=== PATIENT | female | born 1955 | race Caucasian/White ===

== ENCOUNTER 2020-05-06 05:13 | Observation (INO) ==
--- NOTE | 2020-04-26 15:52 | PAT Medication Instructions ---
Medication Instructions Date of Service April 26, 2020 Home Medications alendronate 70 mg tablet 70 mg PO WK antiarthritic combination no.2 900 mg tablet 900 mg PO HS atorvastatin 40 mg tablet 40 mg PO HS calcium carb,cit ER 600 mg calcium-vit D3 500 unit tablet,ext.release 1 tab PO BID docosahexaenoic acid 200 mg capsule 200 mg PO BID levothyroxine 112 mcg tablet 112 mcg PO QAM magnesium oxide 400 mg PO BID montelukast 10 mg tablet 10 mg PO QPM paroxetine HCl 30 mg tablet 30 mg PO HS vitamin B complex 1 tab PO HS warfarin 6 mg tablet 6.5 mg PO 4XWK ascorbic acid (vitamin C) [Vitamin C] 500 mg PO HS cholecalciferol (vitamin D3) [Vitamin D3] 125 mcg PO HS metoprolol succinate 50 mg PO HS warfarin 6 mg PO 3XWK acetaminophen [Tylenol Extra Strength] 1,000 mg PO Q6H PRN allopurinol 100 mg PO HS fluticasone propionate [Flonase] 1 spray INTRANASAL HS Continue as directed alendronate 70 mg tablet 70 mg PO WK (just do not take morning of surgery) ASK your surgeon for instructions antiarthritic combination no.2 900 mg tablet 900 mg PO HS ASK your prescriber and surgeon warfarin STOP taking 2 weeks before surgery docosahexaenoic acid 200 mg capsule 200 mg PO BID DO NOT take the morning of surgery calcium carb,cit ER 600 mg calcium-vit D3 500 unit tablet,ext.release 1 tab PO BID magnesium oxide 400 mg PO BID Take morning of surgery With a small sip of water, OTHERWISE NOTHING TO EAT OR DRINK AFTER MIDNIGHT: levothyroxine 112 mcg tablet 112 mcg PO QAM acetaminophen [Tylenol Extra Strength] 1,000 mg PO Q6H PRN (okay to take up to 4 hours prior to surgery if needed) Take evening before surgery atorvastatin 40 mg tablet 40 mg PO HS calcium carb,cit ER 600 mg calcium-vit D3 500 unit tablet,ext.release 1 tab PO BID magnesium oxide 400 mg PO BID montelukast 10 mg tablet 10 mg PO QPM paroxetine HCl 30 mg tablet 30 mg PO HS vitamin B complex 1 tab PO HS ascorbic acid (vitamin C) [Vitamin C] 500 mg PO HS cholecalciferol (vitamin D3) [Vitamin D3] 125 mcg PO HS metoprolol succinate 50 mg PO HS acetaminophen [Tylenol Extra Strength] 1,000 mg PO Q6H PRN (if needed) allopurinol 100 mg PO HS fluticasone propionate [Flonase] 1 spray INTRANASAL HS Other Notes If you have any questions please call us at [phone] or [phone] or [phone] or [phone]
--- NOTE | 2020-04-30 12:18 | Anesthesiology Consultation ---
Date of Service April 30, 2020 Assessment & Plan (1) Encounter for pre-operative examination: Chart Review Chart Review: Acceptable Risk for Surgery (pending preop Covid testing results ) and Patient seen in Pre Admission Testing Check INR stat AM of surgery Per PAT appt on 04/30/20, patient resides in [facility]. Travels to [facility] for medical appts. Wears mask, uses good hand hygiene and socially distan efra. Works at [employer]- no history of positive cases. Gets tested monthly- has tested negative. No known Covid positive contacts or Covid related symptoms. Pt had Covid testing done through work today ([facility] in [place], [place]) 04/30/20= results pending. Surgeon's office aware. Patient will call with verbal when results are in and will get hard copy for DOS. Educated on importance of self quarantining, social distancing and wearing mask in public both for the patient and household contacts. Seen by cardio on 02/07/20= "She is an acceptable cardiac risk for any necessary procedure such as a knee replacement." DVT and warfarin management deferred to PCP. A fib/SSS/PM- continue current meds including metoprolol. PVCs- will repeat monitor to assess PVC burden s/p PM and on beta rose. SOB- likely multifactorial- not worsening. No further testing at this time. Teaching & Discussion Pre-Anesthesia Teaching/Discussion Notes: Instructed NPO after midnight before surgery,except medications with 15 cc of water. Medication instructions provided according to the PAT guidelines. History Surgery Operation Date: 05/06/20 13:15 Proposed Procedures p Right Total Knee Arthroplasty - Slade Crawford DO Height/Weight Height: 5 ft 7 in Weight: 118.4 kg Allergies Allergy/AdvReac Type Severity Reaction Status Date / Time No Known Allergies Allergy Verified 04/19/20 08:03 Medications Home Medications Medication Instructions Recorded Confirmed Last Taken alendronate 70 mg tablet 70 mg PO WK 07/17/19 04/19/20 Unknown antiarthritic combination no.2 900 900 mg PO HS 07/17/19 04/19/20 Unknown mg tablet atorvastatin 40 mg tablet 40 mg PO HS 07/17/19 04/19/20 Unknown calcium carb,cit ER 600 mg 1 tab PO BID 07/17/19 04/19/20 Unknown calcium-vit D3 500 unit tablet,ext.release docosahexaenoic acid 200 mg capsule 200 mg PO BID 07/17/19 04/19/20 Unknown levothyroxine 112 mcg tablet 112 mcg PO QAM 07/17/19 04/19/20 Unknown magnesium oxide 400 mg PO BID 07/17/19 04/19/20 Unknown montelukast 10 mg tablet 10 mg PO QPM 07/17/19 04/19/20 Unknown paroxetine HCl 30 mg tablet 30 mg PO HS 07/17/19 04/19/20 Unknown vitamin B complex 1 tab PO HS 07/17/19 04/19/20 Unknown warfarin 6 mg tablet 6.5 mg PO 4XWK 07/17/19 04/19/20 Unknown ascorbic acid (vitamin C) [Vitamin 500 mg PO HS 10/24/19 04/19/20 Unknown C] cholecalciferol (vitamin D3) 125 mcg PO HS 10/24/19 04/19/20 Unknown [Vitamin D3] metoprolol succinate 50 mg PO HS 10/24/19 04/19/20 Unknown warfarin 6 mg PO 3XWK 10/24/19 04/19/20 Unknown acetaminophen [Tylenol Extra 1,000 mg PO Q6H PRN 04/19/20 04/19/20 Unknown Strength] allopurinol 100 mg PO HS 04/19/20 04/19/20 Unknown fluticasone propionate [Flonase] 1 spray INTRANASAL HS 04/19/20 04/19/20 Unknown Past Medical History Medical History (Updated 05/01/20 @ 08:09 by Kenya Mir, JAVANC) Afib Stable and controlled Anti-phospholipid antibody syndrome DX'D 1995-F/U PCP- did have DVT after pacer placement due to not being bridged with Lovenox Anxiety Stable and controlled Bigeminy Follows with cardio- stable DVT (deep venous thrombosis) 1993 (LLE), recurrent DVT after AC discontinued in 1995 Fatty liver Mild elevation in LFTs- otherwise stable and controlled Gout On Allopurinol daily- stable and controlled Hemochromatosis Stable- taken off iron supplement - no current issues - follows with PCP Hyperlipidemia Hypothyroid Migraine Myasthenia gravis s/p thymectomy, "in remission" SINCE 2004 Pulmonary embolus 1993 PVC's (premature ventricular contractions) Sleep apnea CPAP SOB (shortness of breath) on exertion Chronic and stable Tachy-feliciano syndrome S/p pacer placement - November 2019 Exercise / Class Metabolic Activity III < 4 Walking/Shop/Light housework (one flight of stairs - mild SOB, no chest pain ) Past Family History Family History Mother , HEART FAILURE Hypertension Osteoporosis Dyslipidemia Cancer BREAST CA Father Cancer BLADDER CA SKIN CA Coronary heart disease Past Surgical History Surgical History History of appendectomy History of carpal tunnel release of both wrists History of colonoscopy History of right breast biopsy History of surgery on left wrist ORIF History of thymectomy History of tonsillectomy Pacemaker PLACEMENT-11/2019-F/U DR GAGE العلي Past Anesthesia History No Hx of Anesthesia Complications and No Family Hx of Anesthesia Complications History of PONV No Hx of PONV and No Hx of Motion Sickness Social History Smoking Status: Never smoker Do You Dip or Chew Tobacco: No Hx Alcohol Use: Yes Alcohol type: other alcohol intake frequency: a few times a month Hx Substance Use: No substance use type: does not use Review of Systems Patient denies chest pain, shortness of breath, dyspnea on exertion, reflux, cough, wheezing, palpitations. No hx of seizures, stroke, NH. No hx of blood transfusions Physical Exam Vital Signs VITALS BP 117/78 P 61 TEMP 97.3 SP02 97&% RESP 16 Constitutional no acute distress ENMT Mouth: no TMJ clicking Thyromental Distance: > or= 3.5 Finger Breadths (3.5) Mallampati Class: I Missing molars Crowns to molars Cap to front right side tooth Neck + short neck, + thick neck and + limited neck extension (mild ) Respiratory normal respiratory effort; no respiratory distress Auscultation: lungs clear to auscultation bilaterally; no wheezes Cardiovascular Rate/Rhythm: regular rate and regular rhythm (occ missed beat ) Heart Sounds: no murmur Vessels: no carotid bruit Musculoskeletal Spine: no pain with cervical ROM Neurologic moves all extremities Psychiatric Orientation: alert Testing Laboratory Results 04/30/20 12:40 04/30/20 12:40 PT 18.1 Seconds (9.0-12.0) H 04/30/20 12:40 INR 1.8 (0.9-1.1) H 04/30/20 12:40 APTT 49.3 Seconds (21.0-31.0) H* 04/30/20 12:40 Blood Type AB Positive 04/30/20 12:40 Antibody Screen NEGATIVE 04/30/20 12:40 Electrocardiogram Date: 02/07/20 Atrial pacing with occ PVCs noted at 64 bpm. Chest X-Ray Date: 04/30/20 Findings: + NAD Echocardiogram Date: 09/25/19 EF: 50% LV Function: dysfunctional (Mildly decreased ) Some beat to beat variability in LV function due to a fib with RVR. Apical segment, apical inferior segment, and apex are mildly hypokinetic. All remaining scored segments are normal. LA mildly dilated. Mild MI Stress Test Date: 09/18/19 Type: nuclear No evidence of myocardial ischemia/infarction. Wall motion is normal. Transient ischemic dilatation is absent. EF 50%. Other Testing Pacer check 02/14/20= [employer]. Implanted 11/29/19. Mode DDDR. RA pacing 30%. RV pacing 9%. Battery life remaining 13 years. AT/AF burden 21%. 467 HVR episodes. All events appear to be a fib RVR, longest >48 hours, HR 126-190 bpm. No changes made
--- NOTE | 2020-04-30 13:02 | XRay Report ---
XR chest Pre-admission PA/Lat HISTORY: 64 years-old Female pat preoperative exam. No acute chest complaints COMPARISON: None TECHNIQUE: PA and lateral views of the chest FINDINGS: Cardiomediastinal and hilar silhouettes are within normal limits. Surgical clips project over the mid line upper chest. Left subclavian pacer. No pneumothorax, pleural effusion, airspace consolidation or overt pulmonary edema. Degenerative changes of the shoulders and spine. Convex right curvature of th e midthoracic spine. IMPRESSION: No acute process. ACT 112: Negative or not required by law. The above report was generated using voice recognition software. It may contain grammatical, syntax o r spelling errors. Electronically signed by: Flex Emanuel M.D. 04/30/2020 1:01 PM
[2020-04-30 13:22] LABS: Basophils # (auto) 0.05 K/uL (0-0.2); Basophils % (auto) 0.7 %; Eosinophils # (auto) 0.26 K/uL (0-0.5); Eosinophils % (auto) 3.9 %; Hematocrit (blood only) 43.9 % (37-47); Hemoglobin 14.5 g/dL (12.0-16.0); Immature Granulocytes # (auto) 0.01 K/uL (0.00-0.02); Immature Granulocytes % (auto) 0.1 %; Lymphocytes # (auto) 2.07 K/uL (1.2-3.4); Lymphocytes % (auto) 30.9 %; Mean Corpuscular Hemoglobin 29.3 pg (25-34); Mean Corpuscular Volume 88.7 fL (80-100); Mean Platelet Volume 10.9 fL (7.4-10.4); Monocytes # (auto) 0.77 K/uL (0.11-0.59); Monocytes % (auto) 11.5 %; Neutrophils # (auto) 3.54 K/uL (1.4-6.5); Neutrophils % (auto) 52.9 %; Platelet Count 231 K/uL (130-400); RDW Coefficient of Variation 15.3 % (11.5-14.5); RDW Standard Deviation 49.8 fL (36.4-46.3); Red Blood Count 4.95 M/uL (4.2-5.4)
[2020-04-30 13:31] LABS: BUN Creatinine Ratio 19.4 (10-20); Calcium 10.1 mg/dl (8.5-10.1); Creatinine Clr Calc Pharmacy 92.3 ml/min; Est GFR (African American) 87.6; Est GFR (Non-African American) 75.6; Potassium 4.5 mmol/L (3.5-5.1)
[2020-04-30 13:44] LABS: INR 1.8 (0.9-1.1); Partial Thromboplastin Ratio 1.8; Prothrombin Time 18.1 Seconds (9.0-12.0)
[2020-04-30 13:47] LABS: Partial Thromboplastin Time 49.3 Seconds (21.0-31.0)
--- NOTE | 2020-05-02 12:11 | History & Physical Report ---
Date of Service May 02, 2020 Assessment & Plan (1) Osteoarthritis of right knee: We will proceed with a right total knee arthroplasty. Postoperatively she will be started back on Coumadin for DVT prophylaxis and bridged with Lovenox. We will keep her overnight in the hospital for postoperative medical management. She plans to do outpatient physical therapy in [place] upon discharge. Present on Admission?: Yes History of Present Illness Chief Complaint: Primary osteoarthritis of the right knee Primary Care Provider: NO PCP Alejandro is a pleasant 64-year-old female who is been dealing with chronic increasing right knee pain. X-rays and clinical examination have been diagnostic for advanced osteoarthritis of the right knee. She does have an extensive clotting history. She has an antiphospholipid antibody. In 1994 she had a DVT and a pulmonary embolism. She had been on Coumadin since. She then had a pacemaker placed in November 2019 and there was no Lovenox bridge. She developed a DVT from that. She has since been on the Coumadin. A recent ultrasound was negative for DVT. She has elected to proceed with a right total knee arthroplasty. Allergies Allergy/AdvReac Type Severity Reaction Status Date / Time No Known Allergies Allergy Verified 04/19/20 08:03 Home Medications Home Medications Medication Instructions Recorded Confirmed Type alendronate 70 mg tablet 70 mg PO WK 07/17/19 04/19/20 History antiarthritic combination no.2 900 900 mg PO HS 07/17/19 04/19/20 History mg tablet atorvastatin 40 mg tablet 40 mg PO HS 07/17/19 04/19/20 History calcium carb,cit ER 600 mg 1 tab PO BID 07/17/19 04/19/20 History calcium-vit D3 500 unit tablet,ext.release docosahexaenoic acid 200 mg capsule 200 mg PO BID 07/17/19 04/19/20 History levothyroxine 112 mcg tablet 112 mcg PO QAM 07/17/19 04/19/20 History magnesium oxide 400 mg PO BID 07/17/19 04/19/20 History montelukast 10 mg tablet 10 mg PO QPM 07/17/19 04/19/20 History paroxetine HCl 30 mg tablet 30 mg PO HS 07/17/19 04/19/20 History vitamin B complex 1 tab PO HS 07/17/19 04/19/20 History warfarin 6 mg tablet 6.5 mg PO 4XWK 07/17/19 04/19/20 History ascorbic acid (vitamin C) [Vitamin 500 mg PO HS 10/24/19 04/19/20 History C] cholecalciferol (vitamin D3) 125 mcg PO HS 10/24/19 04/19/20 History [Vitamin D3] metoprolol succinate 50 mg PO HS 10/24/19 04/19/20 History warfarin 6 mg PO 3XWK 10/24/19 04/19/20 History acetaminophen [Tylenol Extra 1,000 mg PO Q6H PRN 04/19/20 04/19/20 History Strength] allopurinol 100 mg PO HS 04/19/20 04/19/20 History fluticasone propionate [Flonase] 1 spray INTRANASAL HS 04/19/20 04/19/20 History Past Med/Surg History Medical History Afib Stable and controlled Anti-phospholipid antibody syndrome DX'D 1995-F/U PCP- did have DVT after pacer placement due to not being bridged with Lovenox Anxiety Stable and controlled Bigeminy Follows with cardio- stable DVT (deep venous thrombosis) 1993 (LLE), recurrent 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 AC discontinued in 1995 Fatty liver Mild elevation in LFTs- otherwise stable and controlled Gout On Allopurinol daily- stable and controlled Hemochromatosis Stable- taken off iron supplement - no current issues - follows with PCP Hyperlipidemia Hypothyroid Migraine Myasthenia gravis s/p thymectomy, "in remission" SINCE 2004 Pulmonary embolus 1993 PVC's (premature ventricular contractions) Sleep apnea CPAP SOB (shortness of breath) on exertion Chronic and stable Tachy-feliciano syndrome S/p pacer placement - November 2019 Surgical History History of appendectomy History of carpal tunnel release of both wrists History of colonoscopy History of right breast biopsy History of surgery on left wrist ORIF History of thymectomy History of tonsillectomy Pacemaker PLACEMENT-11/2019-F/U DR GAGE العلي Family History Mother , HEART FAILURE Hypertension Osteoporosis Dyslipidemia Cancer BREAST CA Father Cancer BLADDER CA SKIN CA Coronary heart disease Social History Smoking Status: Never smoker Second Hand Exposure: Yes (PARENTS SMOKED); Hx Alcohol Use: Yes Alcohol type: other Hx Substance Use: No Preferred Language: Israeli Communication Ability: Effective Visual Impairment: No Limitations Hearing Ability: Normal Digital Computer Operator Required: No Beliefs That Will Affect Care: None marital status: Unknown Current Living Situation: Spouse current occupational status: employed current occupation: NURSING Feels Safe at Home: Yes Review of Systems Review of Systems: All systems reviewed & are unremarkable except as noted in HPI & below Physical Exam Constitutional: WD/WN, vitals as above Eyes: PERRL, conjunctivae normal, anicteric sclerae ENMT: external ear and nose normal, oropharynx normal Neck: trachea midline, no thyromegaly Respiratory: normal respiratory effort Cardiovascular: RRR, no murmur, no edema Gastrointestinal (Abdomen): normal bowel sounds, soft, nontender, no hepatosplenomegaly Musculoskeletal: On physical examination of the right knee there is a trace effusion. There is near full range of motion and no evidence of instability. There is significant tenderness palpation along the medial and lateral joint lines and over the distal femoral condyles. Psychiatric: A+Ox3, euthymic affect Results & Data Results & Data ([facility]) Diagnostic Findings Radiographs of the right knee demonstrate advanced osteoarthritis with joint space narrowing osteophyte formation and [id number] articulation. PG Care Time/CCT Total # of Minutes Spent Total Time Spent with Patient: Total time spent is greater than 50% in coordination of care (as documented) at patient's floor/unit and/or counseling patient: Coding Level of Care Code 40633 OBS Care - Level 2 Diagnoses Osteoarthritis of right knee M17.11
[2020-05-06] MEDS ORDERED: GABAPENTIN 600 MG DOSE PO SCH (06:00)
[2020-05-06] MEDS ORDERED: TRANEXAMIC ACID 1,000 MG **IV Pre-op IV SCH (06:00)
[2020-05-06] MEDS ORDERED: ROPIVACAINE 0.5% HCL/PF 150 MG, BUPIVACAINE 0.5% MPF 30 ML, EPINEPHrine 30MG/30ML (OR U... INSTIL SCH (06:00)
[2020-05-06] MEDS ORDERED: LR 60ML/HR IV SCH (06:00)
[2020-05-06] MEDS ORDERED: dexAMETHasone 4 MG TAB PO SCH (06:00)
[2020-05-06] MEDS ORDERED: ACETAMINOPHEN 500 MG TAB PO SCH (06:00)
[2020-05-06] MEDS ORDERED: CEFAZOLIN 2000MG 2,000 MG/15 ML SYR IV SCH (06:00)
[2020-05-06] MEDS ORDERED: FAMOTIDINE 20 MG TAB PO SCH (06:00)
[2020-05-06] MEDS ORDERED: TRANEXAMIC ACID 1,000 MG **IV Intra-op IV SCH (06:00)
[2020-05-06] MEDS ORDERED: LR 500ML BOLUS, THEN 15ML/HR IV SCH (06:00)
[2020-05-06] MEDS ORDERED: BUPIVACAINE 0.5 % 5 MG/1 ML PF 10ML VIAL ONE (06:21)
[2020-05-06 06:25] LABS: INR 1.1 (0.9-1.1); Partial Thromboplastin Ratio 1.7; Prothrombin Time 11.1 Seconds (9.0-12.0)
[2020-05-06 06:35] LABS: Partial Thromboplastin Time 46.1 Seconds (21.0-31.0)
--- NOTE | 2020-05-06 06:39 | History & Physical Bridge Note ---
Date of Service May 06, 2020 History & Physical Bridge Note I have examined the patient, reviewed the History & Physical and in the interval since the performance of the History & Physical I have noted the following changes of clinical significance: no changes noted
[2020-05-06] MEDS ORDERED: MIDAZOLAM HCL 1 MG/ML 2ML VIAL ONE (06:47)
[2020-05-06] MEDS ORDERED: fentaNYL citrate 100 MCG/2 ML VIAL ONE ×2 (06:47→07:49)
[2020-05-06] MEDS ORDERED: ORTHO JOINT ANESTHETIC ONE (06:57)
[2020-05-06] MEDS ORDERED: ONDANSETRON INJ 2 MG/ML 2 ML VIAL IV PRN ×2 (07:22→10:20)
[2020-05-06] MEDS ORDERED: ATROPINE SULFATE 0.1 MG/ML 10ML SYR IV PRN (07:22)
[2020-05-06] MEDS ORDERED: fentaNYL citrate 100 MCG/2 ML VIAL IV PRN (07:22)
[2020-05-06] MEDS ORDERED: ePHEDrine sulfate 50 MG/ML AMP IV PRN (07:22)
[2020-05-06] MEDS ORDERED: KETAMINE HCL INJ 50 MG/ML 10 ML VIAL ONE (07:54)
[2020-05-06] MEDS ORDERED: LIDOCAINE HCL 2% 2 ML VIAL/AMP(20MG/ML) INFIL ONE (08:23)
[2020-05-06] MEDS ORDERED: METOPROLOL TARTRATE 1 MG/ML VIAL IV ONE (08:23)
[2020-05-06] MEDS ORDERED: PROPOFOL IV EMULSION 10 MG/ML 20 ML VIAL IV ONE (08:23)
[2020-05-06] MEDS ORDERED: DEXAMETHASONE SOD INJ 4 MG/ML VIAL ONE (08:27)
[2020-05-06] MEDS ORDERED: ONDANSETRON INJ 2 MG/ML 2 ML VIAL ONE (08:27)
--- NOTE | 2020-05-06 08:55 | Operative Report ---
PG Post Operative Report Pre & Post Diagnosis Operation Date: 05/06/20 07:15 Pre-Op Diagnosis: Degenerative Joint Disease Right Knee Post-Op Diagnosis: Degenerative Joint Disease Right Knee I identified the patient and participated in the time-out.: Yes Procedure Operation Date: 05/06/20 07:15 Actual Procedures p Right Total Knee Arthroplasty, Cemented(Right) - Slade Crawford DO Surgeon Slade Crawford DO Reproductive Healthcare Assistant Slade Thomas PAC Estimated Blood Loss 10 Findings Consistent with Post-Op Diagnosis Specimens Right femoral and tibial bone Complications none Disposition Disposition: Recovery Room Indications Alejandro is a pleasant 64-year-old female who presented my office with chronic increasing right knee pain. X-rays and clinical examination were diagnostic for primary osteoarthritis of her right knee. After extensive conservative management and medical work-up for her clotting disorders, she elected to proceed with a right total knee arthroplasty. Description of Procedure Implants used: I used a Matt Persona total knee arthroplasty system with a size 8 narrow femur, E tibia, 32 patella, and a size 10 medial congruent polyethylene bearing. All components were cemented in place with Palacos G cement. Alejandro arrived [facility] for the above procedure. She was seen in the preoperative holding area and the operative extremity was identified and signed. She was given a preoperative antibiotic and an adductor nerve block. She was taken back to the operating room and laid on the table in supine position. She was given a general anesthetic. The operative knee was then prepped and draped in sterile fashion. A timeout was done, and the patient and the operative extremity was properly identified. A midline incision was made directly over the patella. Dissection was taken down to the extensor mechanism. A subvastus arthrotomy was used. The medial retinaculum was released and the fat pad was mostly excised. The knee was flexed and the ACL, PCL, and meniscus were removed. A drill was sent down the center of the femoral canal followed by an intramedullary christ. Off that christ a distal femoral cutting block was placed. 9 mm was resected off the distal femur at 5 of valgus. A posterior referencing AP sizing guide was then placed on the distal femur. The femur measured to be a size 8 narrow. 2 drill holes were placed in 3 of external rotation. A 4-in-1 cutting block was then impacted into place. Anterior, posterior, and chamfer cuts were then made. The proximal tibia was then exposed. An external tibial alignment guide was placed. A tibial cut guide was then anchored in place and the proximal tibia was then resected. The posterior aspect of the knee was then opened up and any additional meniscus fragments and osteophytes were removed. The tibia measured to be a size E. The tibial bone was weak so the decision was made to do a short stem on the tibial implant. The tibial plate was then placed in the appropriate rotation and the tibia was drilled and punched. Trial components were then placed. I used a size 10 medial congruent polyethylene insert. The knee was brought through a full range of motion and felt to be stable. The peg holes for the femoral component were then drilled. The patella was then everted and 9 mm was resected off the posterior aspect of the patella. The patella measured to be a size 32. 3 peg holes were then drilled. A trial patella was placed. The knee was once again brought through a full range of motion and felt to be stable. Trial components were then removed. The surrounding soft tissues were injected with 100 cc of an orthopedic pain control cocktail. All components were then cemented into place with Palacos G cement. The final polyethylene insert was then snapped into place. Once cement was dry the tourniquet was deflated. Hemostasis was obtained. A dilute betadyne lavage was then done for 3 minutes. The joint was then irrigated with normal saline solution. The subvastus arthrotomy was then closed with #1 Vicryl suture. The skin was closed with 2-0 Vicryl, 3-0V lock suture, and christian. A Silverlon and a soft compressive dressing were placed. She was then transferred to a hospital bed and taken to the postanesthesia care unit in stable condition. She tolerated the procedure well. Slade Thomas PA-C, was present for the entire procedure. He was critical for patient positioning, prepping, draping, retraction exposure, wound closure and application of sterile dressing. I attest to the content of the Intraoperative Record and any orders documented therein. Any exceptions are noted below.
--- NOTE | 2020-05-06 09:43 | XRay Report ---
XR knee RT 1 or 2V routine HISTORY: 64 years-old Female Surgical Post Op right knee total joint arthroplasty COMPARISON: The radiographs 02/12/2020 TECHNIQUE: 2 views the right knee FINDINGS: Right knee total joint arthroplasty and patella resurfacing. Anterior midline skin christian are noted along with expected postsurgical soft tissue swelling and deep tissue air. No acute fracture or expec radha retained foreign body. Arterial calcifications. Surgical drainage catheter. IMPRESSION: Right knee total joint arthroplasty and patella resurfacing with expected postoperative c hanges. ACT 112: Negative or not required by law. The above report was generated using voice recognition software. It may contain grammatical, syntax o r spelling errors. Electronically signed by: Flex Emanuel M.D. 05/06/2020 9:42 AM
--- NOTE | 2020-05-06 10:15 | Anesthesiology Progress Note ---
Date of Service May 06, 2020 Anesthesia Post Procedure Vital Signs Vital Signs: Temp Pulse Pulse Resp BP Pulse Ox 05/06/20 09:53 98.1 F 63 20 107/70 96 05/06/20 09:35 60 19 116/76 99 05/06/20 09:25 61 16 128/86 99 05/06/20 09:15 98.2 F 75 16 166/102 H 95 05/06/20 06:42 75 18 136/88 96 05/06/20 06:29 97.9 F 86 18 127/94 96 Transfer of Care Handoff Completed per policy Notes Mental Status: alert / awake / arousable and participated in evaluation Patient Amnestic to Procedure: Yes Nausea / Vomiting: adequately controlled Pain: adequately controlled Airway Patency, RR, SpO2: stable & adequate BP & HR: stable & adequate Hydration State: stable & adequate Anesthetic Complications: no major complications apparent and Pt Satisfied with anesthetic care
[2020-05-06] MEDS ORDERED: METOCLOPRAMIDE HCL INJ 5 MG/ML 2 ML VIAL IV PRN (10:20)
[2020-05-06] MEDS ORDERED: OXYCODONE HCL IR 5 MG TAB (IMMEDIATE RELEASE) PO PRN (10:20)
[2020-05-06] MEDS ORDERED: HYDROmorphone INJ 0.5 MG/0.5 ML SYR IV PRN (10:20)
[2020-05-06] MEDS ORDERED: bisacodyL 10 MG SUPP PR PRN (10:20)
[2020-05-06] MEDS ORDERED: NALOXONE HCL 0.4 MG/1 ML VIAL/CARP IV PRN (10:20)
[2020-05-06] MEDS ORDERED: MAGNESIUM HYDROXIDE SUSP 30 ML UDC PO PRN (10:20)
[2020-05-06] MEDS: SODIUM CHLORIDE 0.9% 1000ML 1,000 ML IV SCH ×2 (11:00→21:25)
[2020-05-06] MEDS: KETOROLAC 30 MG/ML VIAL IV SCH ×3 (11:00→23:15)
[2020-05-06] MEDS ORDERED: ORTHO WARFARIN NOMOGRAM SCH (14:00)
[2020-05-06] MEDS: ACETAMINOPHEN 500 MG TAB PO SCH ×2 (14:35→21:27)
[2020-05-06] MEDS ORDERED: WARFARIN SOD 5 MG TAB PO ONE (16:00)
[2020-05-06] MEDS: CEFAZOLIN 2000MG 2,000 MG/15 ML SYR IV SCH ×2 (17:03→23:15)
[2020-05-06] MEDS ORDERED: FLUTICASONE PROPIONATE NA SPR 16 GM BTL SCH (21:00)
[2020-05-06] MEDS ORDERED: allopurinoL 100 MG TAB PO SCH (21:00)
[2020-05-06] MEDS ORDERED: SENNA 8.6 MG TAB PO SCH (21:00)
[2020-05-06] MEDS ORDERED: ENOXAPARIN SC SCH (21:00)
[2020-05-06] MEDS ORDERED: CHOLECALCIFEROL 1,000 UNITS 25 MCG TAB PO SCH (21:00)
[2020-05-06] MEDS ORDERED: PARoxetine HCL 10 MG TAB PO SCH (21:00)
[2020-05-06] MEDS ORDERED: ATORVASTATIN 40 MG TAB PO SCH (21:00)
[2020-05-06] MEDS ORDERED: VITAMIN B COMPLEX TAB PO SCH (21:00)
[2020-05-06] MEDS ORDERED: MONTELUKAST SODIUM 10 MG TABLET PO SCH (21:00)
[2020-05-06] MEDS ORDERED: METOPROLOL SUCC 50MG EXT REL TAB PO SCH (21:00)
[2020-05-06] MEDS: DOCUSATE SODIUM 100 MG CAP PO SCH (21:24)
[2020-05-06] MEDS: MAGNESIUM OXIDE 400 MG TAB PO SCH (21:27)
[2020-05-06] MEDS: ENOXAPARIN INJ 120 MG/0.8 ML SYR SQ SCH (21:31)
[2020-05-07] MEDS: KETOROLAC 30 MG/ML VIAL IV SCH ×2 (05:14→11:09)
[2020-05-07] MEDS: ACETAMINOPHEN 500 MG TAB PO SCH (05:14)
[2020-05-07 06:12] LABS: Hematocrit (blood only) 35.6 % (37-47); Hemoglobin 11.8 g/dL (12.0-16.0); Mean Corpuscular Hemoglobin 29.4 pg (25-34); Mean Corpuscular Hgb Conc 33.1 g/dL (32-36); Mean Corpuscular Volume 88.8 fL (80-100); Mean Platelet Volume 10.2 fL (7.4-10.4); Platelet Count 100 K/uL (130-400); RDW Coefficient of Variation 15.3 % (11.5-14.5); RDW Standard Deviation 49.8 fL (36.4-46.3); Red Blood Count 4.01 M/uL (4.2-5.4); White Blood Count 12.16 K/uL (4.8-10.8)
[2020-05-07] MEDS ORDERED: LEVOTHYROXINE SODIUM 112 MCG TABLET PO SCH (06:30)
[2020-05-07 06:36] LABS: BUN Creatinine Ratio 22.9 (10-20); Calcium 8.5 mg/dl (8.5-10.1); Creatinine Clr Calc Pharmacy 84.2 ml/min; Est GFR (African American) 78.3; Est GFR (Non-African American) 67.6; Potassium 4.1 mmol/L (3.5-5.1)
--- NOTE | 2020-05-07 06:42 | Orthopedic Progress Note ---
Date of Service May 07, 2020 Assessment & Plan (1) Status post right knee replacement: Overall she is doing very well. She is not having much pain in the right knee. She will be seen by physical therapy this morning for ambulation and range of motion exercises. She is on Lovenox and Coumadin for DVT prophylaxis. We plan to discharge her to home later today. She can follow-up with orthopedics in 2 weeks. Present on Admission?: Yes Admission and Anticipated Discharge Date Admission Date: May 06, 2020 Pete Allen was seen and examined at bedside this morning. Overall she is doing very well. She is not having any pain in her right knee. She was able to get some sleep last night. She has no complaints. Physical Exam Musculoskeletal: On physical examination of the right knee, the dressing is clean and dry. Her legs out in full extension. She has active dorsiflexion and plantarflexion of her right ankle. Results & Data ([facility]) Vital Signs (Past 12 Hours) Vital Signs Temp Pulse Resp BP Pulse Ox 05/07/20 03:05 36.7 C 65 16 122/73 93 05/06/20 23:23 36.7 C 61 16 117/66 92 05/06/20 20:05 36.6 C 79 16 114/75 92 Laboratory Results H & H 04/30/20 05/07/20 Range/Units 12:40 05:40 Hgb 14.5 11.8 L (12.0-16.0) g/dL Hct 43.9 35.6 L (37-47) % Coagulation 04/30/20 05/06/20 Range/Units 12:40 05:41 INR 1.8 H 1.1 (0.9-1.1) Diagnostic Findings Postoperative x-rays of the right hip show the prosthesis to be in anatomic alignment without any evidence of fracture, dislocation, or loosening. PG Care Time/CCT Total # of Minutes Spent Total Time Spent with Patient: Total time spent is greater than 50% in coordination of care (as documented) at patient's floor/unit and/or counseling patient: Coding Level of Care Code None Diagnoses Status post right knee replacement Z96.651
--- NOTE | 2020-05-07 06:43 | Discharge Summary ---
Date of Service May 07, 2020 Admission HPI Per Admitting Provider Alejandro is a pleasant 64-year-old female who is been dealing with chronic increasing right knee pain. X-rays and clinical examination have been diagnostic for advanced osteoarthritis of the right knee. She does have an extensive clotting history. She has an antiphospholipid antibody. In 1994 she had a DVT and a pulmonary embolism. She had been on Coumadin since. She then had a pacemaker placed in November 2019 and there was no Lovenox bridge. She developed a DVT from that. She has since been on the Coumadin. A recent ultrasound was negative for DVT. She has elected to proceed with a right total knee arthroplasty. Principal Diagnosis Right knee replacement Discharge Data Allergies Allergy/AdvReac Type Severity Reaction Status Date / Time No Known Allergies Allergy Verified 05/06/20 05:55 Consultations 05/06/20 10:20 Consult Case Management - Discharge Planning Routine Procedures Performed Operation Date: 05/06/20 07:15 Actual Procedures p Right Total Knee Arthroplasty, Cemented(Right) - Slade Crawford DO Ordered Studies 05/06/20 05:00 US - OR guided needle placemen Routine Hospital Course (1) Status post right knee replacement: On May 06, [address] [facility] and underwent a right knee replacement without complication. She had a general anesthetic. Postoperatively she was started back on her Lovenox and Coumadin for DVT pr ophylaxis and she was transferred to the general orthopedic floors. Her hospital course was uneventful. On postop day #1 her H&H was stable and her pain was well controlled. She was able to participate well with physical therapy doing ambulation and range of motion exercises. She was then discharged home. She will follow-up with orthopedics in 2 weeks. Total Time Total Time Spent Total Time Spent (In Minutes): 20 Discharge Plan Discharge Items Patient Disposition: Home - Home Health Services Reason For Visit: DJD Right Knee Discharge Diagnosis: Right knee replacement Activity: As commented below Non-emergency contact: Surgeon Call non-emergency contact if: your wound has increased redness and your wound has increased drainage Follow-up/Referrals: Virgen Scherer DO [Primary Care Provider] - Diet: Regular Addtl Attending Provider Instructions: Activity and Therapy Recommendations: * If you are using [facility] then therapy will be provided at your home until they feel you have accomplished all of your goals. * If you are using [facility] then Physical Therapy will be provided until they feel you are ready to start Outpatient Physical Therapy. * If you are not using home therapy then Outpatient Physical Therapy should st art about 3-5 days from your day of surgery. Therapy will last about 6-10 weeks * It is important not to put a pillow under your knee when you are relaxing or sleeping. It is just as important to make sure you are getting your knee perfectly straight as it is to regain your knee bend. * You were shown a series of exercises in the hospital. Do these exercises three times each day including the exercises you were shown in physical therapy. * Get up and walk several times each day. For the first four weeks, try not to stand or walk for more than one hour at a time. If you do stand or walk for mo re than one hour, you will not hurt anything, but your leg will likely swell. * As you feel comfortable, you may change from the walker or crutches to a cane and then to independent walking. Medications: * Narcotic You will likely be sent home from the hospital with a prescription for the narcotic pain medication that worked best throughout your stay. * Continue your Lovenox and Coumadin as instructed * Other medications may be prescribed for specific circumstances. If you have any questions, please call the office at . * Resume previous home medications unless otherwise instructed TEDs/Elastic Stockings: The white elastic stockings help limit swelling and prevent blood clots from forming in your legs.~ The more you wear them, the more they work. Wear them for six weeks. Dressing Care: Leave the Silverlon dressing in place for 7 days. After 7 days you may remove the dressing. If the incision is not draining then you may leave the christian open to air. If there is a little bit of drainage or if the christian are getting stuck on your clothing then cover the incision with a dry dressing. The christian will be removed at your 2 week follow-up appointment. Showering: You may shower with the Silverlon dressing in place. Do not let the shower spray hit the dressing directly. Pat the Silverlon dressing dry. If the dressing becomes wet underneath, then simply remove the dressing. Keep the incision dry until you are 7 days out from the day of surgery. After 7 days you may remove the Silverlon dressing and shower with the christian exposed. Let soapy water run over the christian and pat them dry. Do not scrub or soak the incision. Things To Watch For: * Drainage from the incision site that occurs more than one week after your surgery. * Increased redness at the incision site. * Fever above 102 degrees Fahrenheit. * Unusual chest pain or shortness of breath. * Call [facility] at with any of the above problems Follow-Up Visit: Follow-up with Dr. Crawford's PA (Slade Thomas) 2-3 weeks after your day of surgery. He will remove your christian and answer any questions. If you have any additional questions or concerns, Dr Crawford is usually in the office at the same time and will be available An appointment was probably scheduled when you signed-up for surgery in the office. If you have any questions call Office Instructions: More detailed instructions as well as Frequently Asked Questions were provided in a folder by our office when you signed-up for surgery. Please review these instructions when you get home. If you have any further questions or concerns, please feel free to call the office at [phone] Pending Studies at Discharge: No Stand-Alone Forms: [facility] [employer], Smoking Cessation Medications and DC Order Prescriptions: New oxycodone 5 mg Tablet 5 mg PO Q4H PRN (Reason: pain) Qty: 30 RF: 0 Continued levothyroxine [Synthroid] 112 mcg tablet 112 mcg PO QAM RF: 0 atorvastatin [Lipitor] 40 mg tablet 40 mg PO HS RF: 0 warfarin [Coumadin] 6 mg tablet 6.5 mg PO 4XWK RF: 0 paroxetine HCl [Paxil] 30 mg tablet 30 mg PO HS RF: 0 vitamin B complex [B Complex-Vitamin B12] tablet 1 tab PO HS RF: 0 Algal [place]-3 DHA 200 mg capsule 200 mg PO BID RF: 0 calcium carb and citrate-vitD3 [Citracal-D3 Slow Release] 600 mg calcium- 500 unit tablet extended release 1 tab PO BID RF: 0 glucosamine-chondroitin 900 mg tablet 900 mg PO HS RF: 0 magnesium oxide 400 mg magnesium capsule 400 mg PO BID RF: 0 alendronate 70 mg tablet 70 mg PO WK RF: 0 montelukast [Singulair] 10 mg tablet 10 mg PO QPM RF: 0 warfarin 6 mg Tablet 6 mg PO 3XWK RF: 0 metoprolol succinate 25 mg Tablet Extended Release 24 Hr 50 mg PO HS RF: 0 cholecalciferol (vitamin D3) [Vitamin D3] 125 mcg (5,000 unit) Tablet 125 mcg PO HS RF: 0 ascorbic acid (vitamin C) [Vitamin C] 1,000 mg Tablet 500 mg PO HS RF: 0 allopurinol 100 mg Tablet 100 mg PO HS RF: 0 fluticasone propionate [Flonase] 50 mcg/actuation Bates,Suspension 1 spray INTRANASAL HS RF: 0 acetaminophen [Tylenol Extra Strength] 500 mg Capsule 1,000 mg PO Q6H PRN (Reason: Pain) RF: 0 Lovenox 125 mg SC BID RF: 0 Discharge Orders: Discharge Order (Routine); Ordered 05/07/20 Ordered By: Slade Crawford Admission Data Admit Date/Time: 05/06/20 09:11 Attending Provider: Slade Crawford Admit Provider: Slade Crawford Primary Care Provider: Virgen Scherer Coding Level of Care Code D/C Day Management <30 mins Diagnoses Status post right knee replacement Z96.651
[2020-05-07] MEDS ORDERED: dexAMETHasone 4 MG TAB PO SCH (08:00)
[2020-05-07] MEDS: DOCUSATE SODIUM 100 MG CAP PO SCH (08:41)
[2020-05-07] MEDS: MAGNESIUM OXIDE 400 MG TAB PO SCH (08:42)
[2020-05-07] MEDS: ENOXAPARIN INJ 120 MG/0.8 ML SYR SQ SCH (08:42)
[2020-05-07] MEDS ORDERED: MULTIVITAMIN TAB PO SCH (09:00)
[2020-05-12] MEDS ORDERED: ALENDRONATE SODIUM 70 MG TAB PO SCH (07:00)
== END 2020-05-07 13:59 | disposition home or self-care (01) ==
LOC: ASU 05:13 → 3E 05:13